=== PATIENT | female | born 1985 | race Caucasian/White ===

== ENCOUNTER 2016-10-05 01:13 | Emergency (ER) | payer BC ==
[2016-10-05] MEDS ORDERED: ALBUTEROL SULFATE (0.083%) 2.5 MG/3 ML NEB INH ONE (01:33)
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
[2016-10-05] MEDS ORDERED: AZITHROMYCIN 500 MG TABLET PO ONE (01:59)
[2016-10-05] MEDS ORDERED: BENZONATATE 100 MG CAPSULE PO ONE (02:01)
--- NOTE | 2016-10-09 14:43 | RADIOLOGY REPORT ---
EXAM: CHEST, TWO VIEWS HISTORY: PATIENT HAS PRODUCTIVE COUGH AND GREEN PHLEGM. TECHNIQUE: Two views of the chest were provided along with the comparison study dated 08/27/16. FINDINGS: The cardiomediastinal silhouette is within normal limits for size and contour. The kimberly appear unremarkable. There is no radiographic evidence of a focal infiltrate or pleural effusion. No pneumothorax is noted. The visualized osseous structures of the chest are unremarkable. IMPRESSION: NO RADIOGRAPHIC EVIDENCE OF AN ACUTE INTRATHORACIC PROCESS. JOB NUMBER: [id number] MTDD
== END 2016-10-05 02:17 | disposition home or self-care (01) ==
LOC: ER 01:13
DX: J20.9 Acute bronchitis, unspecified (principal); R06.02 Shortness of breath
CPT/HCPCS: 71020; 94640; 99283; J7613

== ENCOUNTER 2016-10-06 04:11 | Emergency (ER) | payer BC ==
[2016-10-06] MEDS ORDERED: IPRATROPIUM/ALBUTEROL (0.5MG/3MG) NEB INH ONE (04:34)
[2016-10-06] MEDS ORDERED: PREDNISONE 20 MG TAB PO ONE (04:34)
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
[2016-10-06 05:03] LABS: INFLUENZA A POSITIVE (NEGATIVE); INFLUENZA B NEGATIVE (NEGATIVE)
== END 2016-10-06 05:21 | disposition home or self-care (01) ==
LOC: ER 04:11
DX: J10.1 Influenza due to other identified influenza virus with other respiratory manifestations (principal)
CPT/HCPCS: 99283; 99284; 87400; 94640; J7512